=== PATIENT | female | born 1950 | race Caucasian/White ===

== ENCOUNTER 2020-02-14 15:33 | Emergency (ER) | payer SELFPAY ==
[~2020-02-14] VITALS: Ht 152.4 cm; Wt 88.1 kg
--- NOTE | 2020-02-14 16:42 | NUR ---
PT STATES SHE HAS HAD COUGH, AND BODYACHES X SEVERAL WEEKS. PER PT SHE WAS TESTED FRIDAY FOR COVID AND WAS NEGATIVE. HOWEVER PER PT HER SON WHO LIVES WITH HER IS POSITIVE. PT RESTING IN [facility], CARDIAC MONITORING & CONT PULSE OX IN PLACE, PT STATES NO NEEDS AT THIS TIME. NAD NOTED, WILL CONTINUE TO MONITOR.
--- NOTE | 2020-02-14 16:51 | NUR ---
BREAK RN: PT RESTING IN ROOM. PHYSICAL THERAPY ASST ON. NO ACUTE DISTRESS NOTED. VS STABLE. CALL LIGHT IN PLACE. WILL CONTINUE TO MONITOR.
--- NOTE | 2020-02-14 16:55 | NUR ---
BREAK RN: XRAY IN ROOM
--- NOTE | 2020-02-14 17:07 | NUR ---
REPORT GIVEN TO NOELLE PARMAR
--- NOTE | 2020-02-14 17:09 | NUR ---
PT REPORT FROM WIN TURNER RN. PT CARE TO BE ASSUMED.
[2020-02-14 17:25] LABS: ALBUMIN 3.2 g/dL (3.4-5.0); ANION GAP 6 mmol/L (5-15); CALCIUM 8.8 mg/dL (8.5-10.1); CHLORIDE 94 mmol/L (98-107); CREATININE 0.87 mg/dL (0.55-1.02)
[2020-02-14 17:29] LABS: TROPONIN I < 0.015 ng/mL (0.000-0.045)
[2020-02-14 17:46] LABS: MEAN CORPUSCULAR HEMOGLOBIN 28.5 pg (27.0-34.8); MEAN CORPUSCULAR HGB CONC 34.8 g/dL (32.4-35.8); MEAN PLATELET VOLUME 8.2 fL (7.4-10.4); PLATELET COUNT 311 x10^3/uL (130-400); RED BLOOD COUNT 4.48 x10^6/uL (3.82-5.3); RED CELL DISTRIBUTION WIDTH 13.7 % (9.6-15.2)
[2020-02-14] MEDS ORDERED: POTASSIUM CHLORIDE 20 MEQ TAB.ER.PRT PO ONE (18:00)
[2020-02-14 18:29] LABS: MD YES
[2020-02-14 18:38] LABS: BAND#(MANUAL) 0.42 x10^3/uL; BANDS%(MANUAL) 5 % (0-7); LYMPH#(MANUAL) 1.09 x10^3/uL (1-3.4); LYMPHS% (MANUAL) 13 % (22-44); METAMYELOCYTES# (MANUAL) 0.08 x10^3/uL (0-0); METAMYELOCYTES% (MANUAL) 1 % (0-1); MONOS#(MANUAL) 0.42 x10^3/uL (0.3-2.7); MONOS% (MANUAL) 5 % (2-9); SEG#(MANUAL) 6.38 x10^3/uL (1.8-6.8); SEGS% (MANUAL) 76 % (42-75)
[2020-02-14 18:40] LABS: <PLATELET ESTIMATE> ADEQUATE; <PLT MORPHOLOGY> NORMAL PLT MORPH; <RBC MORPHOLOGY> NORMAL
[2020-02-14] MEDS ORDERED: POTASSIUM CHLORIDE 20 MEQ TAB.ER.PRT ONE (19:15)
[2020-02-14] MEDS ORDERED: LEVO25TA4 PO (19:30)
[2020-02-14] MEDS ORDERED: PRAV80TA2 PO (19:30)
[2020-02-14] MEDS ORDERED: HYDR25TA6 PO (19:30)
[2020-02-14] MEDS ORDERED: LAMO25TA9 PO (19:30)
[2020-02-14] MEDS ORDERED: MONT10TA11 PO (19:30)
[2020-02-14] MEDS ORDERED: VENL75TA2 PO (19:30)
[2020-02-14] MEDS ORDERED: LISI-167 PO (19:30)
[2020-02-14] MEDS ORDERED: LEVO50TA91 PO (19:30)
[2020-02-14] MEDS ORDERED: GLIP10TA13 PO (19:30)
[2020-02-14] MEDS ORDERED: OMEP40CA42 PO (19:30)
[2020-02-14] MEDS ORDERED: PIOG45TA63 PO (19:30)
--- NOTE | 2020-02-14 19:32 | NUR ---
KDUR GIVEN PER EMAR
[2020-02-14 19:33] VITALS: BP 114/43
== END 2020-02-14 19:43 | disposition home or self-care (01) ==
LOC: ED 19:35
DX: B34.9 Viral infection, unspecified (principal); R94.31 Abnormal electrocardiogram [ECG] [EKG]; I10 Essential (primary) hypertension; E11.9 Type 2 diabetes mellitus without complications
CPT/HCPCS: 36415; 71045; 80048; 82040; 84484; 85025; 93005; 99285